=== PATIENT | male | born 1950 | race Caucasian/White ===

== ENCOUNTER 2020-04-02 06:51 | Outpatient (CLI) | payer MEDICARE, OTHER ==
[2020-04-02 15:35] LABS: #Basophils 0.1 10x3/uL (0.0-0.2); #Eosinphils 0.3 10x3/uL (0.0-0.5); #Monocytes 0.7 10x3/uL (0.0-1.1); #Neutrophils 4.5 10x3/uL (1.5-8.4); %Basophils 1.1 % (0.0-2.0); %Eosinophils 4.3 % (0.0-6.0); %Lymphocytes 27.9 % (18.0-47.0); %Monocytes 9.2 % (0.0-10.0); %Neutrophils 57.2 % (40.0-75.0); Mean Corpuscular HGB CONC 32.6 G/DL (32.0-36.0); Mean Corpuscular Hemoglobin 31.6 PG (27.0-33.0); Mean Corpuscular Volume 97.1 fl (80.0-100.0); Mean Platelet Volume 10.2 fl (7.4-10.4); Platelet Count 239 10x3/uL (130-400); RBC Distribution Width 12.4 % (11.5-14.5); Red Blood Cell (RBC) Count 4.43 10x6/uL (4.40-5.80); White Blood Cell (WBC) Count 7.9 10x3/uL (4.5-11.0)
[2020-04-02 15:45] LABS: Anion Gap 14 mmol/L (10-20); BUN (Urea Nitrogen) 17 mg/dL (8.4-25.7); Calc. Creatinine Clearance 0 mL/min (70-130); Calcium 9.1 mg/dL (7.8-10.44); Carbon Dioxide 27 mmol/L (23-31); Chloride 104 mmol/L (98-107); Glucose 94 mg/dL (83-110); Potassium 4.6 mmol/L (3.5-5.1); Sodium 140 mmol/L (136-145)
[2020-04-03 00:19] LABS: SARS-CoV-2 MS2 Positive; SARS-CoV-2 N Gene Negative; SARS-CoV-2 S Gene Negative; SARS-CoV-2 by NAA Not Detected (NotDetected); SARS-CoV-2 orf1ab Negative
== END 2020-04-02 06:52 | disposition home or self-care (01) ==
LOC: LABBT 06:51
PROVIDERS: ATTEND Orthopaedic Surgery
DX: Z01.818 Encounter for other preprocedural examination (principal); M75.102 Unspecified rotator cuff tear or rupture of left shoulder, not specified as traumatic; Z20.828 Contact with and (suspected) exposure to other viral communicable diseases
CPT/HCPCS: 80048; 85025; U0003; 87635; 93005; 93010

== ENCOUNTER 2020-04-07 05:40 | Day surgery (SDC) | payer MEDICARE, OTHER ==
[2020-04-01 15:20] VITALS: BMI 28.5
[2020-04-07] MEDS ORDERED: Midazolam HCl 2 mg/2 ml Vial ONE (06:34)
[2020-04-07] MEDS ORDERED: Fentanyl 100 MCG/2 ML VIAL ONE ×2 (06:35→07:22)
[2020-04-07] MEDS ORDERED: Vancomycin 1.5 GRAM/300 ML BAG ONE (06:40)
[2020-04-07] MEDS ORDERED: Famotidine 20 MG TAB ONE (07:22)
[2020-04-07] MEDS ORDERED: Famotidine/PF 20 mg/2ml Vial ONE (07:22)
[2020-04-07] MEDS ORDERED: Fentanyl 100 MCG/2 ML VIAL IV PRN (08:13)
[2020-04-07] MEDS ORDERED: Promethazine HCl 25 MG/ML VIAL IM PRN (08:15)
[2020-04-07] MEDS ORDERED: traMADol HCl 50 MG TAB PO PRN ×2 (08:15)
[2020-04-07] MEDS ORDERED: Ondansetron PF 4 MG/2 ML Vial IVP PRN (08:15)
[2020-04-07] MEDS ORDERED: HYDROcodone/Acetaminophen 10/325 mg Tablet PO PRN ×2 (08:15)
[2020-04-07] MEDS ORDERED: Zolpidem Tartrate 5 MG TAB PO PRN (08:15)
[2020-04-07] MEDS ORDERED: Ropivacaine 0.2% 550 ML 550 ML NERVE BLCK SCH (08:15)
[2020-04-07] MEDS ORDERED: ePHEDrine 50 MG/ML VIAL ONE (10:19)
[2020-04-07] MEDS ORDERED: Ondansetron PF 4 MG/2 ML Vial ONE (10:19)
[2020-04-07] MEDS ORDERED: PHENYLEPHRINE-NS 100 MCG/ML 10 ML SYRINGE ONE (10:19)
[2020-04-07] MEDS ORDERED: Dexamethasone 20 MG/5 ML VIAL ONE (10:19)
[2020-04-07] MEDS ORDERED: Glycopyrrolate 0.2 MG/ML 5 ML SYRINGE ONE (10:19)
[2020-04-07] MEDS ORDERED: Rocuronium Bromide 10 MG/ML (10ML VIAL) ONE (10:19)
[2020-04-07] MEDS ORDERED: Lidocaine 1% PF 5 ML VIAL ONE (10:19)
[2020-04-07] MEDS ORDERED: PROPOFOL 200 MG/20 ML VIAL ONE (10:19)
[2020-04-07] MEDS ORDERED: Ropivacaine 0.2% HCl/PF (40 MG/20 ML VIAL) ONE (10:19)
[2020-04-07] MEDS ORDERED: Ropivacaine 0.5% HCl/PF (150 MG/30 ML VIAL) ONE (10:19)
--- NOTE | 2020-04-08 07:08 | OP ---
DATE OF PROCEDURE: 04/07/2020 PREOPERATIVE DIAGNOSIS: Left shoulder impingement, large to massive rotator cuff tear, and biceps tendon tearing and instability. POSTOPERATIVE DIAGNOSES: Left shoulder impingement, large to massive rotator cuff tear, and biceps tendon tearing and instability. PROCEDURES PERFORMED: Left shoulder open subacromial decompression, followed by open rotator cuff repair, followed by open biceps tenodesis. FAMILY MEDICINE RESIDENT: JOE Cevallos. The bilingual executive assistant surgeon was present throughout the procedure to include the approach to the shoulder, the repair of the rotator cuff and performance of the biceps tenodesis, the repair of the deltoid to the acromion and finally final closure of all shoulder wounds. BLOOD LOSS: 100 mL. ANESTHESIA: The patient did have a general anesthetic as well as preoperative block. IMPLANTS: We used a two triple-loaded and one double-loaded titanium rotator cuff anchor. We used a 7 x 23 BioComposite tenodesis screw. We used two BioComposite 4.75 mm SwiveLock anchors. DISPOSITION: He went to recovery room in stable condition. INDICATIONS: A 69-year-old male who has had some problems with the shoulder for a while, but since the late Fall, has had significant difficulty raising arm and has had weakness. At this time, he is presenting for repair of rotator cuff tear. DESCRIPTION OF PROCEDURE: After all appropriate consent forms were explained and signed, he was taken to operating room and at this time was given general anesthetic. Once the level of anesthesia was appropriate, he was placed in a modified beach chair position with all bony prominences well padded. The left shoulder and upper extremity were then prepped and draped in standard surgical fashion. A 10 blade was used to incise down through skin only. Bovie was used to clear any brisk venous bleeding. We then made ourselves a traveling window to be able to visualize our shoulder. We then took full-thickness myofascial flap to take down the anterior portion of the deltoid, going inline with a visible raphe in the muscle laterally. The muscle of the deltoid itself was split with a finger inline with the fibers. This was taken laterally down approximately 2 cm only. At this time, we then peeled the tissue off, exposing the anterior acromion. A Jovany was placed underneath the anterior acromion and a saw was used to perform an anterior acromioplasty. The inferior acromioplasty was then performed manually with a rasp. At this time, we then removed our bursal tissue, gaining access to our rotator cuff tendon. At this time, we then visualized our tendon, placing some traction sutures in the tendon and mobilizing the tendon from the superior and inferior surfaces. Once this was done, it was apparent that the patient had torn in an L-fashion, where the longitudinal line had gone basically at the rotator interval and the tendon had torn off its insertion throughout the entire supra and most of the infraspinatus and then traveled intertendinously back toward the teres. At this time, we first went ahead and performed our biceps tenodesis. A stitch was placed in the biceps tendon. Curved Talavera scissors were used to cut off the biceps tendon from its insertion superiorly. At this time, we then sutured our biceps tendon, cut off the intra-articular portion and removed it from the field. The transverse humeral ligament had been opened up and any brisk venous bleeding was coagulated. The bicipital groove was found to be clean. A pin was placed. We reamed with a 7 mm reamer to a depth of 25 mm, and a 7 x 23 BioComposite Bio-Tenodesis screw was placed in standard fashion. Sutures were tied over top, so the screw could not back out. Once this was done, we then performed reapproximation of our anterior edge of our rotator cuff tear to the leading edge of the subscapularis. This was done with a couple of simple Ethibond sutures. Once this was done, we then placed a couple of Ethibond sutures to close our intratendinous tearing posteriorly, and once this was done, we then removed all soft tissue off our tuberosity insertion site. We then freshened up the edge of our rotator cuff in its entirety. We then placed two triple loaded and one double loaded rotator cuff anchors right off the articular edge of the bone. We then ran these sutures through our rotator cuff tear in mattress fashion and finally tied all the sutures. The most anterior anchor was cut and left out of the double row repair. The two triple loaded anchors were then passed through with a free needle through a small wedge of soft tissue that was still attached to the bone lateral to our repair off the articular edge and these sutures were then split and placed into two 4.75 mm SwiveLocks for a double-row repair. At this time, we then took our shoulder through full range of motion, finding an anatomic repair, being able to repair the entirety of the rotator cuff tear with excellent stability and no motion whatsoever. The patient had excellent external rotation and full forward flexion at the table. At this time, we thoroughly irrigated and dried our wound. We then placed three sets of Ethibond sutures through the acromion to we primarily repaired the deltoid back to bone. We then over-ran this with a large Vicryl, finishing our deltoid repair. We then thoroughly irrigated and dried some more. We then used 2-0 Vicryl and surgical sheng to close our incision. A small sterile dressing was applied and the patient then had his left upper extremity placed in a sling prior to waking him up. The patient was then awakened and he was taken to recovery room in stable condition. All counts were correct at the end of the case and he did receive preoperative IV antibiotics. Job ID: [id number]
== END 2020-04-07 12:23 | disposition home or self-care (01) ==
LOC: SDC 05:40
PROVIDERS: ATTEND Orthopaedic Surgery
PROC: 0LM10ZZ Reattachment of Right Shoulder Tendon, Open Approach (ICD-10-PCS; principal; 2020-04-07)
PROC: 0LS30ZZ Reposition Right Upper Arm Tendon, Open Approach (ICD-10-PCS; 2020-04-07)
PROC: 3E0T3BZ Introduction of Anesthetic Agent into Peripheral Nerves and Plexi, Percutaneous Approach (ICD-10-PCS; 2020-04-07)
DX: S46.212A Strain of muscle, fascia and tendon of other parts of biceps, left arm, initial encounter (principal); S46.012A Strain of muscle(s) and tendon(s) of the rotator cuff of left shoulder, initial encounter; M25.812 Other specified joint disorders, left shoulder; G89.18 Other acute postprocedural pain; K21.9 Gastro-esophageal reflux disease without esophagitis; K22.70 Barrett's esophagus without dysplasia; Z79.82 Long term (current) use of aspirin; Z79.899 Other long term (current) drug therapy
CPT/HCPCS: 23410; 23430; 64416; 97139; A4306; C1713 ×3; J0690; J1100; J2250; J2405; J2704; J2795; J3010; J3370; J3490; S0028